=== PATIENT | female | born 1960 | race Caucasian/White ===

== ENCOUNTER 2016-11-07 20:02 | Emergency (ER) | payer OTHER ==
--- NOTE | ~2016-11-07 | CR181 ---
[facility] A Service [facility] RADIOLOGY TEXT RESULTS PATIENT: NURIS NOE LOCATION: [facility] : 64 UNIT #: [id number] AGE: [address]: ABRAHAN YARBROUGH APRN SEX: F ORDER DR: [id number] [facility] [address] [place], [place] [address] [id number] E MR#: [id number] Acc #: [id number] NAME: NURIS NOE : 1960 SEX: F STUDY DATE/TIME: 11/07/2016 21:00 UNIT: TX ROOM: STUDY DESCRIPTION: CR Lumbar Spine 2 or 3 Views Attending Physician: Abrahan Yarbrough Aprn Ordering Physician: Abrahan Yarbrough Aprn Primary Care Physician: Naheed Avila M.D. MEDICAL IMAGING REPORT This report is preliminary unless electronic signature is present EXAM Lumbar spine series HISTORY Back pain after falling 5 days ago. COMPARISON 09/22/2015. TECHNIQUE 3 views lumbar spine were obtained. FINDINGS Alignment is satisfactory. There is moderate degenerative disc disease at L3-L4 with disc space narrowing and osteophyte formation. There are mild degenerative changes at L2-L3 and L4-L5. Moderate facet hypertrophy is seen at L5-S1 bilaterally. Since the previous examination, no changes are noted. No acute findings. IMPRESSION Mid lumbar degenerative disc disease. Lower lumbar facet hypertrophy. No change from the previous exam. Dictated by... Bryan Wheatley M.D. THIS IS AN ELECTRONICALLY VERIFIED REPORT Bryan Wheatley M.D. at 11/08/2016 10:15 AM RLF/pcl [facility] A Service [facility] RADIOLOGY TEXT RESULTS PATIENT: NURIS NOE LOCATION: [facility] : 64 UNIT #: [id number] AGE: [address]: ABRAHAN YARBROUGH APRN SEX: F ORDER DR: TD: 11/07/2016 21:43 JOB #: [id number] MEDICAL IMAGING REPORT Page 1 of 1 COPY
--- NOTE | ~2016-11-07 | CR21 ---
[facility] A Service of [facility] RADIOLOGY TEXT RESULTS PATIENT: NURIS NOE LOCATION: [facility] : 64 UNIT #: [id number] AGE: [address]: ABRAHAN YARBROUGH APRN SEX: F ORDER DR: [id number] [facility] [address] [place], [place] [address] [id number] E MR#: [id number] Acc #: [id number] NAME: NURIS NOE : 1960 SEX: F STUDY DATE/TIME: 11/07/2016 21:49 UNIT: [facility] ROOM: STUDY DESCRIPTION: CR Ankle Min 3 Views Rt Attending Physician: Abrahan Yarbrough Aprn Ordering Physician: Abrahan Yarbrough Aprn Primary Care Physician: Naheed Avila M.D. MEDICAL IMAGING REPORT This report is preliminary unless electronic signature is present EXAM Right ankle. HISTORY Ankle pain after falling 5 days ago. COMPARISON 09/22/2015 TECHNIQUE 3 views of the ankle were obtained. FINDINGS Chronic ossification is seen adjacent to the tip of the fibula unchanged from the previous examination consistent with previous ligamentous injury. No acute fractures are seen. The ankle mortise is symmetric. There is also a small spur at the medial malleolus that is unchanged. 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 No fracture. Dictated by... Bryan Wheatley M.D. THIS IS AN ELECTRONICALLY VERIFIED REPORT Bryan Wheatley M.D. at 11/08/2016 10:15 AM JESSICA/aluren TD: 11/07/2016 22:38 JOB #: [id number] [facility] A Service [facility] RADIOLOGY TEXT RESULTS PATIENT: NURIS NOE LOCATION: [facility] : 64 UNIT #: [id number] AGE: [address]: ABRAHAN YARBROUGH APRN SEX: F ORDER DR: MEDICAL IMAGING REPORT Page 1 of 1 COPY
[~2016-11-07 20:02] MED LIST: NAPROSYN500 MG PO
== END 2016-11-07 23:06 | disposition home or self-care (01) ==
LOC: CFTX 20:02
DX: M54.41 Lumbago with sciatica, right side (principal); M25.571 Pain in right ankle and joints of right foot; I10 Essential (primary) hypertension; Z90.49 Acquired absence of other specified parts of digestive tract
CPT/HCPCS: 72100; 73610; 96372; 99284; J1885

== ENCOUNTER 2017-03-01 18:50 | Emergency (ER) | payer OTHER ==
[~2017-03-01] VITALS: Ht 170.2 cm; Wt 129.3 kg
--- NOTE | ~2017-03-01 | CR263 ---
[facility] A Service of [facility] RADIOLOGY TEXT RESULTS PATIENT: NURIS NEO LOCATION: [facility] : 64 UNIT #: [id number] AGE: [address]: Marlin Gray APRN SEX: F ORDER DR: [id number] [facility] [address]. [place], [place] [address] [id number] E MR#: [id number] Acc #: [id number] NAME: NURIS NOE : 1960 SEX: F STUDY DATE/TIME: 03/01/2017 21:54 UNIT: [facility]NY ROOM: STUDY DESCRIPTION: CR Toe 2 Views Great Rt Attending Physician: Marlin Gray A.P.R.N. Ordering Physician: Marlin Gray A.P.R.N. Primary Care Physician: Naheed Avila M.D. MEDICAL IMAGING REPORT This report is preliminary unless electronic signature is present EXAM Right great toe, 03/01/2017. HISTORY 56-year-old female in the ED with great toe pain after injury. She dropped an object on her toe earlier today but also notes similar injuries over the last several weeks. Pain, laceration, and bruising. TECHNIQUE Three-view right great toe series. FINDINGS The examination shows comminuted fracture, predominately involving the mid portion and tuft of the first distal phalanx, but there is evidence of proximal intraarticular extension to the lateral surface of the base of the distal phalanx. Surrounding soft tissue swelling. No visible radiopaque soft tissue foreign body. IMPRESSION Comminuted first distal phalanx fracture. Soft tissue swelling. Dictated by... Bhavin New M.D. THIS IS AN ELECTRONICALLY VERIFIED REPORT Bhavin New M.D. at 03/02/2017 9:52 PM RGW/juan jose TD: 03/02/2017 08:03 JOB #: [id number] [facility] A Service of [facility] RADIOLOGY TEXT RESULTS PATIENT: NURIS NOE [id number] : [birth year] UNIT #: [id number] AGE: [address]: Marlin Gray APRN SEX: F ORDER DR: MEDICAL IMAGING REPORT Page 1 of 1 COPY
== END 2017-03-01 22:54 | disposition home or self-care (01) ==
LOC: CED 18:50 → CFTX 18:50
DX: S92.421A Displaced fracture of distal phalanx of right great toe, initial encounter for closed fracture (principal); Z23 Encounter for immunization; W20.8XXA Other cause of strike by thrown, projected or falling object, initial encounter; Y92.009 Unspecified place in unspecified non-institutional (private) residence as the place of occurrence of the external cause
CPT/HCPCS: 29515; 73660; 90471; 90715; 99283